=== PATIENT | female | born 1975 | race African-American/Black ===

== ENCOUNTER 2018-12-15 14:47 | Emergency (ER) | payer OTHER ==
[~2018-12-15] VITALS: Ht 160 cm; Wt 68.0 kg
[~2018-12-15 14:47] MED LIST: AMOXICILLIN 50500 M1 PO; APAP500; CIPROFLOXACIN500 M1 PO; IBUPROFEN 800800 M1 PO; MOBIC15 MG PO; NAPROSYN500 MG PO; PRENATAL
[2018-12-15 15:02] LABS: URINE BILIRUBIN NEGATIVE (Negative); URINE BLOOD NEGATIVE (Negative); URINE CLARITY CLEAR; URINE COLOR YELLOW; URINE GLUCOSE-RANDOM* NEGATIVE (Negative); URINE KETONES NEGATIVE (Negative); URINE LEUKOCYTES-REFLEX NEGATIVE (Negative); URINE NITRITE-REFLEX NEGATIVE (Negative); URINE PROTEIN (DIPSTICK) NEGATIVE (Negative); URINE UROBILINOGEN 0.2 E.U./dl (0.2-1.0)
[2018-12-15] MEDS ORDERED: TRIAMCINOLONE A60 M1 TOP (16:20)
[2018-12-15] MEDS ORDERED: KEFLEX500 M1 PO (16:20)
[2018-12-15] MEDS ORDERED: PHENAZOPYRIDIN200 M2 PO (16:20)
[2018-12-15 16:29] VITALS: BP 135/81
== END 2018-12-15 17:30 | disposition home or self-care (01) ==
LOC: ER 14:47
PROVIDERS: Physician Assistant
DX: R35.0 Frequency of micturition (principal); R30.0 Dysuria; M54.5 Low back pain; L98.8 Other specified disorders of the skin and subcutaneous tissue; Z87.891 Personal history of nicotine dependence

== ENCOUNTER 2019-03-27 17:09 | Emergency (ER) | payer OTHER ==
[~2019-03-27] VITALS: Ht 167.6 cm; Wt 72.6 kg
[~2019-03-27 17:09] MED LIST changes: +KEFLEX500 M1 PO; +PHENAZOPYRIDIN200 M2 PO; +TRIAMCINOLONE A60 M1 TOP
[2019-03-27] MEDS ORDERED: ULTRAM 50MG TAB50 MG PO (19:08)
[2019-03-27] MEDS ORDERED: LIDOCAINE PAIN1 EACH TRANSDERM (19:08)
[2019-03-27 19:24] VITALS: BP 140/87
--- NOTE | 2019-03-29 12:45 | EKG ---
[address] [address] ELECTROCARDIOGRAM REPORT Name: CINTRONDELMER Juan Miguel Room #: 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
== END 2019-03-27 19:25 | disposition home or self-care (01) ==
LOC: ER 17:09
DX: M54.2 Cervicalgia (principal); R07.89 Other chest pain; Z87.891 Personal history of nicotine dependence; V89.2XXA Person injured in unspecified motor-vehicle accident, traffic, initial encounter; Y93.89 Activity, other specified; Y92.488 Other paved roadways as the place of occurrence of the external cause; Y99.8 Other external cause status

== ENCOUNTER 2021-03-28 17:19 | Emergency (ER) | payer OTHER ==
[~2021-03-28] VITALS: Ht 160 cm; Wt 68.0 kg
[~2021-03-28 17:19] MED LIST changes: +LIDOCAINE PAIN1 EACH TRANSDERM; +ULTRAM 50MG TAB50 MG PO
[2021-03-28 17:30] VITALS: BP 155/99
[2021-03-28 17:39] LABS: URINE BILIRUBIN NEGATIVE (Negative); URINE BLOOD 2+ (Negative); URINE CLARITY CLEAR; URINE COLOR YELLOW; URINE GLUCOSE-RANDOM* NEGATIVE (Negative); URINE KETONES TRACE (Negative); URINE NITRITE-REFLEX NEGATIVE (Negative); URINE PROTEIN (DIPSTICK) NEGATIVE (Negative); URINE SPECIFIC GRAVITY 1.015 (1.005-1.035)
[2021-03-28 17:40] LABS: URINE LEUKOCYTES-REFLEX 2+ (Negative)
[2021-03-28 17:46] LABS: SQUAMOUS 0-3 Few /LPF (0-3)
[2021-03-28 17:48] LABS: BACTERIA-REFLEX 1-9 Few /HPF (None Seen); CASTS None Seen /LPF (None Seen); CRYSTALS None Seen /LPF (None Seen); URINE RBC 3-10 Few /HPF (NONE SEEN)
[2021-03-28] MEDS ORDERED: CEPHALEXIN500 MG PO (18:09)
[2021-03-28] MEDS ORDERED: PHENAZOPYRIDIN200 M2 PO (18:09)
[2021-04-01] MEDS ORDERED: MACROBID 100 M100 M1 PO (08:04)
== END 2021-03-28 18:10 | disposition home or self-care (01) ==
LOC: ER 17:19
PROVIDERS: Emergency Medicine
DX: N39.0 Urinary tract infection, site not specified (principal); Z79.899 Other long term (current) drug therapy; Z87.891 Personal history of nicotine dependence